=== PATIENT | female | born 1930 | race Caucasian/White ===

== ENCOUNTER 2021-04-04 09:37 | Emergency (ER) | payer MEDICARE, OTHER, BC ==
[~2021-04-04] VITALS: Ht 154.9 cm; Wt 59.0 kg
[2021-04-04 11:09] LABS: CLARITY,URINE CLEAR (CLEAR); COLOR,URINE YELLOW (YELLOW); LEUKOCYTE ESTERASE ,URINE NEGATIVE (NEGATIVE); NITRITE,URINE NEGATIVE (NEGATIVE); PROTEIN,URINE DIPSTICK NEGATIVE (NEGATIVE)
[2021-04-04 11:10] LABS: BACTERIA,URINE RARE /HPF; EPITHELIAL CELLS,URINE FEW /LPF; KETONES,URINE NEGATIVE (NEGATIVE); URINE UROBILINOGEN 0.2 mg/dL (0.2 - 1)
[2021-04-04] MEDS ORDERED: LIDOCAINE 4% PATCH TP SCH (11:30)
[2021-04-04] MEDS ORDERED: HYDROCODONE/APAP 5MG-325MG TAB PO ONE (12:00)
[2021-04-04] MEDS ORDERED: HYDROCODON-ACE1 EA11 PO (14:00)
[2021-04-04 14:19] VITALS: BP 154/59
== END 2021-04-04 14:21 | disposition home or self-care (01) ==
LOC: ER 11:15
DX: M54.6 Pain in thoracic spine (principal); S22.070A Wedge compression fracture of T9-T10 vertebra, initial encounter for closed fracture; W18.30XA Fall on same level, unspecified, initial encounter; Y92.008 Other place in unspecified non-institutional (private) residence as the place of occurrence of the external cause; G25.81 Restless legs syndrome; Z85.72 Personal history of non-Hodgkin lymphomas
CPT/HCPCS: 71250; 72131; 74176; 81001; 87086; 99283